=== PATIENT | female | born 1995 | race Two or more races ===

== ENCOUNTER 2024-02-14 00:55 | Emergency (ER) | payer MEDICAID, OTHER ==
[~2024-02-14] VITALS: Ht 167.6 cm; Wt 63.5 kg
[2024-02-14] MEDS ORDERED: CLIN150C16 PO (02:22)
[2024-02-14 02:36] VITALS: BP 136/80; TEMP 98.5; O2SAT 99
[2024-02-14] MEDS ORDERED: CLINDAMYCIN HCL 150 MG CAPSULE ONE (02:37)
[2024-02-14] MEDS: CLINDAMYCIN HCL 150 MG CAPSULE PO ONE (02:40)
== END 2024-02-14 02:41 | disposition home or self-care (01) ==
LOC: ER 01:01
DX: L03.114 Cellulitis of left upper limb (principal)